=== PATIENT | female | born 1965 | race African-American/Black ===

== ENCOUNTER 2017-05-17 23:27 | Emergency (ER) | payer MEDICAID ==
[~2017-05-17] VITALS: Ht 162.6 cm; Wt 110.4 kg
[~2017-05-17 23:27] MED LIST: AMLO5TAB88 PO; ESTR0.3T3 PO; HYDR25TA PO; MEDR2.5T7 PO; NAPR220T PO
[2017-05-18] MEDS ORDERED: NAPROXEN 500MG TABLET PO ONE (02:00)
[2017-05-18 03:22] VITALS: BP 134/78
== END 2017-05-18 04:43 | disposition home or self-care (01) ==
LOC: ER 23:27
DX: M19.071 Primary osteoarthritis, right ankle and foot (principal); Z88.6 Allergy status to analgesic agent
CPT/HCPCS: 73610; 99284; Z7610

== ENCOUNTER 2017-07-11 01:24 | Emergency (ER) | payer MEDICAID ==
[~2017-07-11] VITALS: Ht 162.6 cm; Wt 107.0 kg
[2017-07-11] MEDS ORDERED: ACETAMINOPHEN 500MG TABLET PO ONE (04:15)
[2017-07-11 05:55] VITALS: BP 132/83
== END 2017-07-11 05:57 | disposition home or self-care (01) ==
LOC: ER 01:24
DX: R51 Headache (principal); M25.572 Pain in left ankle and joints of left foot; M25.571 Pain in right ankle and joints of right foot; I10 Essential (primary) hypertension; Z90.49 Acquired absence of other specified parts of digestive tract; Z98.890 Other specified postprocedural states; Z88.6 Allergy status to analgesic agent
CPT/HCPCS: 81025; 99283

== ENCOUNTER 2019-06-20 07:30 | Inpatient (IN) | payer MEDICAID ==
[~2019-06-20] VITALS: Ht 162.6 cm; Wt 120.3 kg
[2019-06-20] MEDS ORDERED: METO-396 PO (07:55)
[2019-06-20] MEDS ORDERED: LISI-604 PO (07:55)
[2019-06-20] MEDS ORDERED: ASPIRIN 81MG TABLET PO ONE (08:45)
[2019-06-20] MEDS ORDERED: CLONIDINE 0.2MG TABLET PO ONE (08:45)
[2019-06-20 09:01] LABS: BASOPHILS % 0.6 % (0.0-2.0); EOSINOPHILS % 8.4 % (0.0-5.0); HEMOGLOBIN. 13.9 g/dL (12.0-16.0); LYMPHOCYTES % 33.8 % (20.0-50.0); MEAN CORPUSCULAR HEMOGLOBIN 33.5 pg (28.0-32.0); MEAN CORPUSCULAR VOLUME 96.7 fL (81.0-99.0); MEAN PLATELET VOLUME 9.2 fl (7.4-10.4); MONOCYTES % 6.1 % (2.0-8.0); NEUTROPHILS % 51.1 % (40.0-76.0); PLATELET 251 x1000/uL (130-400); RED BLOOD CELL COUNT 4.13 mill/uL (4.2-5.4); RED CELL DISTRIBUTION WIDTH 13.8 % (11.6-14.6)
[2019-06-20 09:03] LABS: CHLORIDE 111 mEq/L (98-107)
[2019-06-20 09:06] LABS: PARTIAL THROMBOPLASTIN TIME 28.5 sec (23.4-31.0); PROTHROMBIN TIME 10.5 sec (9.6-11.0)
[2019-06-20 09:07] LABS: ETHANOL BLOOD < 10 mg/dL
[2019-06-20 09:12] LABS: CLARITY URINE CLEAR (CLEAR); COLOR URINE YELLOW (YELLOW); KETONES URINE NEGATIVE (NEGATIVE); LEUKOCYTE ESTERASE URINE 2+ (NEGATIVE); NITRITE URINE NEGATIVE (NEGATIVE); OCCULT BLOOD URINE NEGATIVE (NEGATIVE); PROTEIN URINE NEGATIVE (NEGATIVE); SPECIFIC GRAVITY URINE 1.014 (1.005-1.030); UROBILINOGEN URINE 0.2 E.U./dL (0.2-1.0)
[2019-06-20 09:27] LABS: *AMPHETAMINES SCREEN URINE NEGATIVE (NEGATIVE); CANNABINOID URINE SCREEN NEGATIVE (NEGATIVE)
[2019-06-20 09:29] LABS: *BARBITURATES SCREEN URINE NEGATIVE (NEGATIVE); *BENZODIAZEPINES SCREEN URINE NEGATIVE (NEGATIVE); *COCAINE SCREEN URINE NEGATIVE (NEGATIVE); METHADONE URINE SCREEN NEGATIVE (NEGATIVE); OPIATES URINE SCREEN NEGATIVE (NEGATIVE); PHENCYCLIDINE URINE SCREEN NEGATIVE (NEGATIVE)
[2019-06-20] MEDS ORDERED: CEFTRIAXONE 1 G PREMIX 50 ML IV ONE (10:30)
[2019-06-20 14:00] VITALS: BP 126/81
[2019-06-20] MEDS ORDERED: MAGNESIUM/ALUMINUM HYDROXIDE/SIMETHICONE 30ML UDC PO PRN (16:00)
[2019-06-20] MEDS ORDERED: ENOXAPARIN 40MG/0.4ML SYR SUBCUT SCH (16:00)
[2019-06-20] MEDS ORDERED: NA PHOS,M-B/NA PHOS,DI-BA ENEMA 118ML PR PRN (16:00)
[2019-06-20] MEDS ORDERED: DOCUSATE SODIUM 100MG CAPSULE PO PRN (16:00)
[2019-06-20] MEDS ORDERED: DIPHENHYDRAMINE 50MG/ML VIAL IV PRN (16:00)
[2019-06-20] MEDS ORDERED: GUAIFENESIN 200MG/10ML SUGAR FREE UDC PO PRN (16:00)
[2019-06-20] MEDS: LISINOPRIL 20MG TABLET PO SCH (16:26)
[2019-06-20 17:00] VITALS: BP 126/81
[2019-06-20 20:00] VITALS: BP 131/80
[2019-06-20] MEDS: METOPROLOL TARTRATE 25MG TABLET PO SCH (20:29)
[2019-06-20] MEDS: ENOXAPARIN 30MG/0.3ML SYR SUBCUT SCH (20:29)
[2019-06-20 23:59] LABS: CREATINE KINASE 101 IU/L (26-192)
[2019-06-21] VITALS: BP 120/70
[2019-06-21] LABS: CREATINE KINASE MB FRACTION < 1.0 ng/mL (0.5-3.6)
[2019-06-21 04:00] VITALS: BP 133/71
[2019-06-21 06:47] LABS: BASOPHILS % 1.1 % (0.0-2.0); EOSINOPHILS % 8.4 % (0.0-5.0); HEMATOCRIT. 40.2 % (36.0-48.0); HEMOGLOBIN. 13.9 g/dL (12.0-16.0); LYMPHOCYTES % 43.1 % (20.0-50.0); MEAN CORPUSCULAR HEMOGLOBIN 33.7 pg (28.0-32.0); MEAN CORPUSCULAR VOLUME 97.5 fL (81.0-99.0); MEAN PLATELET VOLUME 9.1 fl (7.4-10.4); MONOCYTES % 8.4 % (2.0-8.0); PLATELET 248 x1000/uL (130-400); RED BLOOD CELL COUNT 4.13 mill/uL (4.2-5.4); RED CELL DISTRIBUTION WIDTH 13.8 % (11.6-14.6)
[2019-06-21 07:22] LABS: CHLORIDE 109 mEq/L (98-107)
[2019-06-21 07:29] LABS: LDL CHOLESTEROL 117 mg/dL (5-100)
[2019-06-21 07:30] LABS: CREATINE KINASE 101 IU/L (26-192); HDL CHOLESTEROL 87 mg/dL (40-59)
[2019-06-21] MEDS: CLONIDINE 0.1MG TABLET PO PRN ×2 (07:30→22:09)
[2019-06-21 07:33] LABS: CREATINE KINASE MB FRACTION < 1.0 ng/mL (0.5-3.6)
[2019-06-21 08:00] VITALS: BP 146/84
[2019-06-21] MEDS: LISINOPRIL 20MG TABLET PO SCH (08:46)
[2019-06-21] MEDS: ENOXAPARIN 30MG/0.3ML SYR SUBCUT SCH ×2 (08:47→20:17)
[2019-06-21] MEDS: CEFTRIAXONE 1 G PREMIX 50 ML IV SCH (08:47)
[2019-06-21] MEDS: METOPROLOL TARTRATE 25MG TABLET PO SCH ×2 (08:47→20:16)
[2019-06-21 12:00] VITALS: BP 118/75
[2019-06-21 15:51] LABS: CHLORIDE 107 mEq/L (98-107)
[2019-06-21] MEDS: ASPIRIN 81MG TABLET PO SCH (15:52)
[2019-06-21 20:00] VITALS: BP 163/80
[2019-06-21] MEDS: ATORVASTATIN CALCIUM 40MG TABLET PO SCH (20:17)
[2019-06-21] MEDS ORDERED: ATORVASTATIN CALCIUM 10MG TABLET PO SCH (21:00)
[2019-06-22] VITALS: BP 153/80
[2019-06-22 04:00] VITALS: BP 125/82
[2019-06-22 08:00] VITALS: BP 148/83
[2019-06-22] MEDS: LISINOPRIL 10MG TABLET PO SCH ×2 (09:00→12:56)
[2019-06-22] MEDS: METOPROLOL TARTRATE 25MG TABLET PO SCH ×2 (09:00→12:55)
[2019-06-22] MEDS: ASPIRIN 81MG TABLET PO SCH (09:00)
[2019-06-22] MEDS: ENOXAPARIN 30MG/0.3ML SYR SUBCUT SCH ×2 (10:23→21:25)
[2019-06-22] MEDS: CEFTRIAXONE 1 G PREMIX 50 ML IV SCH (10:23)
[2019-06-22] MEDS ORDERED: LIP40 PO (10:46)
[2019-06-22] MEDS ORDERED: ASPI-1160 PO (10:46)
[2019-06-22] MEDS ORDERED: LISI10TA5 PO (10:46)
[2019-06-22 12:35] VITALS: BP 168/69
[2019-06-22 16:00] VITALS: BP 141/82
[2019-06-22 20:00] VITALS: BP 127/82
[2019-06-22] MEDS: ATORVASTATIN CALCIUM 40MG TABLET PO SCH (21:25)
[2019-06-22] MEDS: CLONIDINE 0.1MG TABLET PO PRN (23:31)
[2019-06-23] VITALS (7 sets, daily range): BP systolic 127–161; BP diastolic 68–94
[2019-06-23] MEDS: ASPIRIN 81MG TABLET PO SCH (09:34)
[2019-06-23] MEDS: ENOXAPARIN 30MG/0.3ML SYR SUBCUT SCH ×2 (09:34→20:19)
[2019-06-23] MEDS: METOPROLOL TARTRATE 25MG TABLET PO SCH ×2 (09:45→20:18)
[2019-06-23] MEDS: CEFTRIAXONE 1 G PREMIX 50 ML IV SCH (09:52)
[2019-06-23] MEDS: ATORVASTATIN CALCIUM 40MG TABLET PO SCH (20:17)
== END 2019-06-23 20:26 | disposition home or self-care (01) | DRG 243 ==
LOC: ER 08:14 → 5WST 11:24 → EDBEDREQ 11:32 → EDBEDREQTM 11:32 → ENRESERV 14:46
PROVIDERS: ADMIT Family Medicine; ATTEND Family Medicine
DX: K21.9 Gastro-esophageal reflux disease without esophagitis (principal); E78.5 Hyperlipidemia, unspecified; I10 Essential (primary) hypertension; N39.0 Urinary tract infection, site not specified; K08.89 Other specified disorders of teeth and supporting structures; Z79.899 Other long term (current) drug therapy; Z90.49 Acquired absence of other specified parts of digestive tract; Z88.8 Allergy status to other drugs, medicaments and biological substances
CPT/HCPCS: 36415; 71045; 80053; 80061; 80305; 80320; 81003; 82550; 82553; 82962; 83735; 83880; 84443; 84484; 85025; 93005; 93017; 93306; 99285; J0696; J1200; J1650; G0480

== ENCOUNTER 2021-06-19 16:18 | Emergency (ER) | payer MEDICAID, OTHER ==
[~2021-06-19] VITALS: Ht 162.6 cm; Wt 119.0 kg
[~2021-06-19 16:18] MED LIST changes: -AMLO5TAB88 PO; +ASPI-1160 PO; -ESTR0.3T3 PO; -HYDR25TA PO; +LIP40 PO; +LISI10TA26 PO; -MEDR2.5T7 PO; +METO-396 PO; -NAPR220T PO
[2021-06-19] MEDS ORDERED: IBUPROFEN 800MG TABLET PO ONE (16:45)
[2021-06-19 16:46] VITALS: BP 178/94
[2021-06-19] MEDS ORDERED: IBUP-2030 MT (17:18)
== END 2021-06-19 17:46 | disposition home or self-care (01) ==
LOC: ER 16:18
DX: S83.8X1A Sprain of other specified parts of right knee, initial encounter (principal); W10.8XXA Fall (on) (from) other stairs and steps, initial encounter; Y93.01 Activity, walking, marching and hiking; Y92.89 Other specified places as the place of occurrence of the external cause
CPT/HCPCS: 73562; 99283

== ENCOUNTER 2021-08-17 12:25 | Emergency (ER) | payer OTHER, MEDICAID ==
[~2021-08-17] VITALS: Ht 162.6 cm; Wt 122.0 kg
[~2021-08-17 12:25] MED LIST changes: +IBUP-2030 MT
[2021-08-17 12:42] VITALS: BP 179/84
[2021-08-17] MEDS ORDERED: IBUP-2029 MT (13:53)
[2021-08-17] MEDS ORDERED: METH-653 MT (13:53)
== END 2021-08-17 14:00 | disposition home or self-care (01) ==
LOC: ER 12:25
DX: M54.59 Other low back pain (principal); R51.9 Headache, unspecified; V49.49XA Driver injured in collision with other motor vehicles in traffic accident, initial encounter; I12.9 Hypertensive chronic kidney disease with stage 1 through stage 4 chronic kidney disease, or unspecified chronic kidney disease; N18.9 Chronic kidney disease, unspecified; Y93.89 Activity, other specified; Y92.488 Other paved roadways as the place of occurrence of the external cause
CPT/HCPCS: 99283

== ENCOUNTER 2021-10-19 00:40 | Emergency (ER) | payer MEDICAID, OTHER ==
[~2021-10-19] VITALS: Ht 162.6 cm; Wt 122.4 kg
[~2021-10-19 00:40] MED LIST changes: +IBUP-2029 MT; +METH-653 MT
[2021-10-19 13:51] VITALS: BP 138/59
[2021-10-19 15:57] LABS: BASOPHILS % 0.4 % (0.0-2.0); HEMATOCRIT. 36.7 % (36.0-48.0); HEMOGLOBIN. 12.1 g/dL (12.0-16.0); LYMPHOCYTES % 32.8 % (20.0-50.0); MEAN CORPUSCULAR VOLUME 99.7 fL (81.0-99.0); MEAN PLATELET VOLUME 8.1 fl (7.4-10.4); MONOCYTES % 7.7 % (2.0-8.0); NEUTROPHILS % 54.1 % (40.0-76.0); PLATELET 274 x1000/uL (130-400); RED BLOOD CELL COUNT 3.68 mill/uL (4.2-5.4); RED CELL DISTRIBUTION WIDTH 14.2 % (11.6-14.6)
== END 2021-10-19 13:53 | disposition home or self-care (01) ==
LOC: ER 00:40
DX: R00.2 Palpitations (principal); R11.2 Nausea with vomiting, unspecified; I10 Essential (primary) hypertension; Z98.84 Bariatric surgery status; E78.00 Pure hypercholesterolemia, unspecified
CPT/HCPCS: 36415; 71045; 84484; 85025; 99284

== ENCOUNTER 2024-02-07 20:11 | Emergency (ER) | payer MEDICAID, OTHER ==
[~2024-02-07] VITALS: Ht 162.6 cm; Wt 96.0 kg
[2024-02-07 20:35] VITALS: O2SAT 97
[2024-02-07] MEDS ORDERED: BENZ100C86 MT (20:55)
[2024-02-07] MEDS ORDERED: ALBU90AE INH (20:55)
[2024-02-07 22:49] VITALS: BP 132/76; PULSE 61; RESP 18; TEMP 36.66960; O2SAT 98
== END 2024-02-07 22:51 | disposition home or self-care (01) ==
LOC: ER 20:11
DX: B34.9 Viral infection, unspecified (principal); R05.9 Cough, unspecified; R09.81 Nasal congestion; I10 Essential (primary) hypertension; Z79.899 Other long term (current) drug therapy; Z88.5 Allergy status to narcotic agent; Z98.890 Other specified postprocedural states; Z90.49 Acquired absence of other specified parts of digestive tract; Z79.82 Long term (current) use of aspirin
CPT/HCPCS: 99283